=== PATIENT | female | born 1995 | race Caucasian/White ===

== ENCOUNTER 2020-03-28 21:19 | Emergency (ER) | payer OTHER ==
[~2020-03-28] VITALS: Ht 160 cm; Wt 117.9 kg
== END 2020-03-28 23:29 | disposition home or self-care (01) ==
LOC: ER 21:19
DX: Z77.098 Contact with and (suspected) exposure to other hazardous, chiefly nonmedicinal, chemicals (principal); Z91.040 Latex allergy status
CPT/HCPCS: 99282

== ENCOUNTER → 2021-06-21 | Outpatient (CLI) | payer OTHER ==
[2021-06-23 22:10] LABS: CHLAMYDIA TRACHOMATIS, NAA Negative (Negative)
== END | disposition home or self-care (01) ==
LOC: LAB SHORT 12:01
PROVIDERS: Obstetrics & Gynecology
DX: Z34.81 Encounter for supervision of other normal pregnancy, first trimester (principal)
CPT/HCPCS: 87491; 87591

== ENCOUNTER → 2021-07-10 | Outpatient (CLI) | payer SELFPAY | END | disposition home or self-care (01) | LOC: LAB SHORT 11:17 | DX: R82.79 Other abnormal findings on microbiological examination of urine (principal) | CPT/HCPCS: 87086 ==

== ENCOUNTER 2021-08-23 03:41 | Day surgery (SDC) | payer OTHER, BC | END 2021-08-23 22:44 | disposition home or self-care (01) | LOC: ATC 03:41 | DX: O21.0 Mild hyperemesis gravidarum (principal); Z3A.00 Weeks of gestation of pregnancy not specified ==

== ENCOUNTER 2021-09-09 11:05 | Emergency (ER) | payer OTHER, BC ==
[~2021-09-09] VITALS: Ht 157.5 cm; Wt 122.5 kg
[2021-09-09 11:44] LABS: Source, Urine Clean Catch
[2021-09-09 11:48] LABS: Appearance, Urine Hazy (Clear); Blood, Urine 5+ (Neg); Color, Urine Yellow (P-Yellow); Glucose Qualitative, Urine Neg (Neg); Ketones, Urine 4+ (Neg); Leukocyte Esterase, Urine 1+ (Neg); Nitrite, Urine Neg (Neg); Protein, Urine 2+ (Neg); Specific Gravity, Urine 1.025 (1.003-1.022); Urobilinogen, Urine 3+ (Normal)
[2021-09-09 11:51] LABS: BASOPHILS ABSOLUTE AUTO 0.03 K/mm3 (0.00-0.23); BASOPHILS PERCENT AUTO 0 % (0-2); EOSINOPHILS ABSOLUTE AUTO 0.04 K/mm3 (0.00-0.68); EOSINOPHILS PERCENT AUTO 0 % (0-6); Hematocrit 37.3 % (33.0-51.0); Hemoglobin 12.8 g/dL (11.5-16.0); IMMATURE GRAN ABSOLUTE AUTO 0.03 K/mm3 (0.00-0.10); IMMATURE GRAN PERCENT AUTO 0 % (0-1); LYMPHOCYTES ABSOLUTE AUTO 1.95 K/mm3 (0.84-5.20); LYMPHOCYTES PERCENT AUTO 19 % (21-46); MONOCYTES ABSOLUTE AUTO 0.63 K/mm3 (0.16-1.47); MONOCYTES PERCENT AUTO 6 % (4-13); Mean Corpuscular HGB 28.8 pg (26.0-34.0); Mean Corpuscular HGB Conc 34.3 g/dL (31.5-36.5); Mean Corpuscular Volume 84 fL (80-100); Mean Platelet Volume 10.8 fL (9.1-12.4); NEUTROPHILS ABSOLUTE AUTO 7.43 K/mm3 (1.96-9.15); NEUTROPHILS PERCENT AUTO 74 % (41-73); Platelet Count 286 K/mm3 (150-400); RDW Coefficient Variation 13.7 % (11.7-14.2); RDW Standard Deviation 41.6 fL (35.1-46.3); Red Blood Cell Count 4.45 M/mm3 (3.80-5.20); White Blood Cell Count 10.11 K/mm3 (4.00-11.30)
[2021-09-09 12:13] LABS: Bilirubin, Urine 1+ (Neg)
[2021-09-09 12:16] LABS: Bacteria Mod /hpf; Calcium Oxalate Crystals Few /hpf; Mucus Light (0-Heavy); Red Blood Cells, Urine 25-50 /hpf (0-2); Squamous Epithelial Cells Mod /hpf (Few)
[2021-09-09 12:26] LABS: Alanine Aminotransfer (ALT/SGP 240 U/L (12-78); Albumin/Globulin Ratio 0.8 (0.8-1.8); Alk Phos 111 U/L (50-136); Anion Gap 9 mmol/L (6-16); Aspartate Aminotrans (AST/SGOT 95 U/L (12-37); Bilirubin, Total 0.7 mg/dL (0.1-1.0); Blood Urea Nitrogen 3 mg/dL (8-24); Bun/Creatinine Ratio 5.2 (12.0-20.0); CO2, Blood 22 mmol/L (21-32); Calcium, Blood 9.6 mg/dL (8.5-10.1); Chloride, Blood 107 mmol/L (98-108); Creatinine, Blood 0.58 mg/dL (0.40-1.00); Glomerular Filtration Rate >60 (60-); Glucose, Blood 85 mg/dL (70-99); Potassium, Blood 4.1 mmol/L (3.5-5.5); Sodium, Blood 138 mmol/L (136-145)
[2021-09-09] MEDS ORDERED: Norco 5-325 Ta1 EACH PO (16:20)
== END 2021-09-09 16:05 | disposition home or self-care (01) ==
LOC: ER 11:05
PROVIDERS: Physician Assistant
DX: O99.891 Other specified diseases and conditions complicating pregnancy (principal); R10.11 Right upper quadrant pain; Z91.040 Latex allergy status; Z3A.16 16 weeks gestation of pregnancy
CPT/HCPCS: 36415; 76700; 80053; 81001; 83690; 85025; 87086; 96374; 99284-25; A9270; J2405; J7030

== ENCOUNTER 2021-09-11 08:24 | Emergency (ER) | payer OTHER, BC ==
[~2021-09-11] VITALS: Ht 157.5 cm; Wt 117.9 kg
[~2021-09-11 08:24] MED LIST: Norco 5-325 Ta1 EACH PO
[2021-09-11 09:30] LABS: BASOPHILS ABSOLUTE AUTO 0.05 K/mm3 (0.00-0.23); BASOPHILS PERCENT AUTO 0 % (0-2); EOSINOPHILS ABSOLUTE AUTO 0.03 K/mm3 (0.00-0.68); EOSINOPHILS PERCENT AUTO 0 % (0-6); Hematocrit 36.5 % (33.0-51.0); Hemoglobin 12.7 g/dL (11.5-16.0); IMMATURE GRAN ABSOLUTE AUTO 0.03 K/mm3 (0.00-0.10); IMMATURE GRAN PERCENT AUTO 0 % (0-1); LYMPHOCYTES ABSOLUTE AUTO 1.69 K/mm3 (0.84-5.20); LYMPHOCYTES PERCENT AUTO 14 % (21-46); MONOCYTES ABSOLUTE AUTO 0.63 K/mm3 (0.16-1.47); MONOCYTES PERCENT AUTO 5 % (4-13); Mean Corpuscular HGB Conc 34.8 g/dL (31.5-36.5); Mean Corpuscular Volume 83 fL (80-100); Mean Platelet Volume 10.7 fL (9.1-12.4); NEUTROPHILS ABSOLUTE AUTO 10.06 K/mm3 (1.96-9.15); NEUTROPHILS PERCENT AUTO 81 % (41-73); Platelet Count 294 K/mm3 (150-400); RDW Coefficient Variation 13.6 % (11.7-14.2); RDW Standard Deviation 41.1 fL (35.1-46.3); Red Blood Cell Count 4.38 M/mm3 (3.80-5.20); White Blood Cell Count 12.49 K/mm3 (4.00-11.30)
[2021-09-11] MEDS ORDERED: PROG100 PO (09:33)
[2021-09-11] MEDS ORDERED: ONDA4ODT MM (09:33)
[2021-09-11 09:48] LABS: Alanine Aminotransfer (ALT/SGP 210 U/L (12-78); Albumin, Blood 2.9 g/dL (3.4-5.0); Albumin/Globulin Ratio 0.8 (0.8-1.8); Alk Phos 102 U/L (50-136); Anion Gap 8 mmol/L (6-16); Aspartate Aminotrans (AST/SGOT 88 U/L (12-37); Bilirubin, Total 0.6 mg/dL (0.1-1.0); Blood Urea Nitrogen 3 mg/dL (8-24); Bun/Creatinine Ratio 5.6 (12.0-20.0); CO2, Blood 22 mmol/L (21-32); Calcium, Blood 9.2 mg/dL (8.5-10.1); Chloride, Blood 108 mmol/L (98-108); Creatinine, Blood 0.54 mg/dL (0.40-1.00); Globulin, Blood 3.5 g/dL (2.2-4.0); Glomerular Filtration Rate >60 (60-); Glucose, Blood 91 mg/dL (70-99); Sodium, Blood 138 mmol/L (136-145); Total Protein, Blood 6.4 g/dL (6.4-8.2)
[2021-09-11 10:01] LABS: Source, Urine Clean Catch
[2021-09-11 10:05] LABS: Appearance, Urine Clear (Clear); Bilirubin, Urine Neg (Neg); Blood, Urine 5+ (Neg); Color, Urine Amber (P-Yellow); Glucose Qualitative, Urine Neg (Neg); Ketones, Urine 4+ (Neg); Leukocyte Esterase, Urine 1+ (Neg); Nitrite, Urine Neg (Neg); Protein, Urine 2+ (Neg); Specific Gravity, Urine 1.025 (1.003-1.022); Urobilinogen, Urine 3+ (Normal)
[2021-09-11 11:06] LABS: Bacteria Few /hpf; Squamous Epithelial Cells Not Seen /hpf (Few)
== END 2021-09-11 11:53 | disposition home or self-care (01) ==
LOC: ER 08:24
PROVIDERS: Emergency Medicine
DX: O99.891 Other specified diseases and conditions complicating pregnancy (principal); R10.9 Unspecified abdominal pain; Z3A.17 17 weeks gestation of pregnancy; Z91.040 Latex allergy status
CPT/HCPCS: 36415; 76700; 76857; 80053; 81001; 83690; 85025; 87086; 96374; 96375; 99284-25; J1885; J2405; J7030

== ENCOUNTER 2022-04-08 23:53 | Emergency (ER) | payer OTHER, BC ==
[~2022-04-08] VITALS: Ht 162.6 cm; Wt 90.7 kg
[~2022-04-08 23:53] MED LIST changes: +ONDA4ODT MM; +PROG100 PO
[2022-04-09 00:38] LABS: Albumin, Blood 3.3 g/dL (3.4-5.0); Albumin/Globulin Ratio 0.8 (0.8-1.8); Bilirubin, Total 0.2 mg/dL (0.1-1.0); Bun/Creatinine Ratio 25.1 (12.0-20.0); Calcium, Blood 9.5 mg/dL (8.5-10.1); Creatinine, Blood 0.68 mg/dL (0.40-1.00); Globulin, Blood 3.9 g/dL (2.2-4.0); Potassium, Blood 4.3 mmol/L (3.5-5.5); Total Protein, Blood 7.2 g/dL (6.4-8.2)
[2022-04-09 00:47] LABS: BASOPHILS ABSOLUTE AUTO 0.07 K/mm3 (0.00-0.23); BASOPHILS PERCENT AUTO 0 % (0-2); EOSINOPHILS ABSOLUTE AUTO 0.27 K/mm3 (0.00-0.68); EOSINOPHILS PERCENT AUTO 2 % (0-6); Hematocrit 33.1 % (33.0-51.0); Hemoglobin 10.4 g/dL (11.5-16.0); IMMATURE GRAN ABSOLUTE AUTO 0.07 K/mm3 (0.00-0.10); IMMATURE GRAN PERCENT AUTO 0 % (0-1); LYMPHOCYTES ABSOLUTE AUTO 3.05 K/mm3 (0.84-5.20); LYMPHOCYTES PERCENT AUTO 19 % (21-46); MONOCYTES PERCENT AUTO 4 % (4-13); Mean Corpuscular HGB 25.4 pg (26.0-34.0); Mean Corpuscular HGB Conc 31.4 g/dL (31.5-36.5); Mean Corpuscular Volume 81 fL (80-100); Mean Platelet Volume 9.7 fL (9.1-12.4); NEUTROPHILS ABSOLUTE AUTO 11.62 K/mm3 (1.96-9.15); NEUTROPHILS PERCENT AUTO 74 % (41-73); Platelet Count 361 K/mm3 (150-400); RDW Coefficient Variation 14.1 % (11.7-14.2); RDW Standard Deviation 41.2 fL (35.1-46.3); Red Blood Cell Count 4.09 M/mm3 (3.80-5.20); White Blood Cell Count 15.78 K/mm3 (4.00-11.30)
== END 2022-04-09 02:15 | disposition home or self-care (01) ==
LOC: ER 23:53
PROVIDERS: Emergency Medicine
DX: R10.13 Epigastric pain (principal); Z91.040 Latex allergy status
CPT/HCPCS: 36415; 76705; 80053; 83690; 85025; A9270; J1885; J2405

== ENCOUNTER 2024-09-26 14:54 | Emergency (ER) | payer OTHER, BC ==
[~2024-09-26] VITALS: Ht 160 cm; Wt 90.7 kg
[2024-09-26 14:59] VITALS: BP 131/72
[2024-09-26] MEDS ORDERED: PRENATAL TABLE1 EAC2 PO (15:11)
== END 2024-09-26 15:50 | disposition home or self-care (01) ==
LOC: ER 14:54
DX: O9A.212 Injury, poisoning and certain other consequences of external causes complicating pregnancy, second trimester (principal); S63.501A Unspecified sprain of right wrist, initial encounter; S50.11XA Contusion of right forearm, initial encounter; Z3A.20 20 weeks gestation of pregnancy; Z91.040 Latex allergy status; Z79.899 Other long term (current) drug therapy; W01.0XXA Fall on same level from slipping, tripping and stumbling without subsequent striking against object, initial encounter
CPT/HCPCS: 73090; 99283-25

== ENCOUNTER → 2024-10-10 | Outpatient (CLI) | payer BC ==
[~2024-10-10] MED LIST changes: +PRENATAL TABLE1 EAC2 PO
[2024-10-10 13:36] LABS: BASOPHILS ABSOLUTE AUTO 0.06 K/mm3 (0.00-0.23); BASOPHILS PERCENT AUTO 1 % (0-2); EOSINOPHILS ABSOLUTE AUTO 0.08 K/mm3 (0.00-0.68); EOSINOPHILS PERCENT AUTO 1 % (0-6); Hematocrit 33.5 % (33.0-51.0); Hemoglobin 11.5 g/dL (11.5-16.0); IMMATURE GRAN ABSOLUTE AUTO 0.09 K/mm3 (0.00-0.10); IMMATURE GRAN PERCENT AUTO 1 % (0-1); LYMPHOCYTES ABSOLUTE AUTO 2.88 K/mm3 (0.84-5.20); LYMPHOCYTES PERCENT AUTO 22 % (21-46); MONOCYTES ABSOLUTE AUTO 0.76 K/mm3 (0.16-1.47); MONOCYTES PERCENT AUTO 6 % (4-13); Mean Corpuscular HGB 30.8 pg (26.0-34.0); Mean Corpuscular HGB Conc 34.3 g/dL (31.5-36.5); Mean Corpuscular Volume 90 fL (80-100); Mean Platelet Volume 10.2 fL (9.1-12.4); NEUTROPHILS ABSOLUTE AUTO 9.27 K/mm3 (1.96-9.15); NEUTROPHILS PERCENT AUTO 71 % (41-73); Platelet Count 267 K/mm3 (150-400); RDW Coefficient Variation 12.6 % (11.7-14.2); RDW Standard Deviation 41.1 fL (35.1-46.3); Red Blood Cell Count 3.73 M/mm3 (3.80-5.20); White Blood Cell Count 13.14 K/mm3 (4.00-11.30)
[2024-10-10 13:46] LABS: Albumin, Blood 2.8 g/dL (3.4-5.0); Albumin/Globulin Ratio 0.7 (0.8-1.8); Bilirubin, Total 0.2 mg/dL (0.1-1.0); Bun/Creatinine Ratio 20.8 (12.0-20.0); Calcium, Blood 8.4 mg/dL (8.5-10.1); Creatinine, Blood 0.53 mg/dL (0.40-1.00); Globulin, Blood 3.8 g/dL (2.2-4.0); Potassium, Blood 3.9 mmol/L (3.5-5.5); Total Protein, Blood 6.6 g/dL (6.4-8.2)
== END ==
LOC: LAB 13:31 → LAB SHORT 13:31
PROVIDERS: Emergency Medicine
DX: R11.2 Nausea with vomiting, unspecified (principal)
CPT/HCPCS: 80053; 83690; 85025

== ENCOUNTER 2024-12-13 18:03 | Observation (INO) | payer BC ==
[~2024-12-13] VITALS: Ht 160 cm; Wt 95.5 kg
[~2024-12-13 18:03] MED LIST changes: +AMPDEX10CR PO; +PROM25 PO
[2024-12-13] MEDS ORDERED: Terbutaline Sulfate 1MG / ML 1 ML Amp SC PRN (18:40)
[2024-12-13] MEDS ORDERED: NIFEdipine 60 MG TabCR PO ONE (18:40)
[2024-12-13] MEDS ORDERED: Terbutaline Sulfate 1MG / ML 1 ML Amp ONE (18:43)
[2024-12-13 18:59] LABS: Source, Urine Clean Catch
[2024-12-13 19:09] LABS: Appearance, Urine Cloudy (Clear); Bilirubin, Urine Neg (Neg); Blood, Urine 5+ (Neg); Color, Urine Yellow (P-Yellow); Glucose Qualitative, Urine Neg (Neg); Ketones, Urine 2+ (Neg); Leukocyte Esterase, Urine 1+ (Neg); Nitrite, Urine Neg (Neg); Protein, Urine 2+ (Neg); Specific Gravity, Urine 1.025 (1.003-1.022); Urobilinogen, Urine NORM (Normal)
[2024-12-13 19:11] VITALS: BP 141/68
[2024-12-13] MEDS ORDERED: Lactated Ringer's 1,000 ML IV ONE ×4 (19:19→20:25)
[2024-12-13] MEDS ORDERED: FentaNYL Citrate 50 MCG/ML 2 ML Injection ONE ×2 (19:19→20:23)
[2024-12-13] MEDS ORDERED: Ondansetron HCl 2 MG / ML 2ML Vial ONE (19:19)
[2024-12-13] MEDS ORDERED: FentaNYL Citrate 50 MCG/ML 2 ML Injection IV ONE ×3 (19:20→20:25)
[2024-12-13] MEDS ORDERED: Ondansetron HCl 2 MG / ML 2ML Vial IV ONE (19:20)
[2024-12-13 19:21] LABS: Bacteria Many /hpf; Red Blood Cells, Urine 50-100 /hpf (0-2); Squamous Epithelial Cells Rare /hpf (Few)
[2024-12-13 19:22] LABS: Amorphous Light (0-Heavy); Calcium Oxalate Crystals Many /hpf; Mucus Light (0-Heavy)
[2024-12-13 19:34] VITALS: BP 134/66
[2024-12-13 20:02] VITALS: BP 132/74
[2024-12-13] MEDS ORDERED: Tamsulosin HCl 0.4 MG Cap PO ONE (20:25)
[2024-12-13 20:29] VITALS: BP 137/73
[2024-12-13] MEDS ORDERED: FentaNYL Citrate 50 MCG/ML 2 ML Injection IV PRN (21:10)
[2024-12-13] MEDS ORDERED: Ondansetron HCl 2 MG / ML 2ML Vial IV PRN (21:15)
[2024-12-13 21:31] VITALS: BP 126/67
[2024-12-13] MEDS ORDERED: Lactated Ringer's 1,000 ML IV SCH (22:25)
[2024-12-13 23:11] VITALS: BP 124/61
[2024-12-13] MEDS ORDERED: NS 250 ML IV SCH (23:35)
[2024-12-13] MEDS ORDERED: fentaNYL citrate 50 MCG/ML 30MLSYR IV PRN (23:35)
[2024-12-13] MEDS ORDERED: fentaNYL citrate 20 MCG/ML 30MLSYR IV PRN (23:50)
[2024-12-13] MEDS ORDERED: NIFE30ER PO (23:52)
[2024-12-14 03:52] VITALS: BP 113/59
--- NOTE | 2024-12-14 07:31 | NUR ---
ASSUMED CARE. PT TRYING TO GET SOME SLEEP. STATES PAIN IS MUCH BETTER WITH ESTATE AND [employer] TAX PRINCIPAL. STILL FEELING SOME MILD ACHE IN THE LEFT FLANK BUT NOTHING LIKE IT WAS. MOLLY CALLED FOR UPDATE AND WILL BE GIVING REPORT TO DR HAINES.
[2024-12-14 07:53] VITALS: BP 125/73
[2024-12-14 12:27] VITALS: BP 121/67
[2024-12-14] MEDS ORDERED: HyDROXyzine HCl 25 MG Tab PO PRN (12:40)
[2024-12-14] MEDS ORDERED: NIFEdipine 30 MG TabCR PO SCH (13:00)
[2024-12-14] MEDS ORDERED: Tamsulosin HCl 0.4 MG Cap PO SCH (13:00)
[2024-12-14 17:55] VITALS: BP 107/55
--- NOTE | 2024-12-14 18:04 | NUR ---
RESTING WELL AT THIS TIME. ZOFRAN GIVEN FOR NAUSEA. PT STATES THIS IS NOTHING NEW AND HAS BEEN NAUSEOUS ENTIRE . DENIES FEELING ANY CONTRACTIONS THAT ARE DIFFERENT THAT SHE IS USE TO. PT STATES SHE FEELS LIKE POSSIBLE STONE IS MOVING DOWN LOWER. WILL CONTINUE TO STRAIN URINE. REPORT WILL BE GIVEN TO ONCOMING SHIFT.
[2024-12-14 19:58] VITALS: BP 110/63
[2024-12-14] MEDS ORDERED: OxyCODONE HCL 5 MG TAB PO PRN (20:10)
[2024-12-14] MEDS ORDERED: HYDROmorphone HCl 2 MG Tab PO PRN (20:10)
[2024-12-15 00:49] VITALS: BP 103/52
[2024-12-15 05:00] VITALS: BP 85/49
[2024-12-15 05:01] VITALS: BP 95/54
[2024-12-15 07:42] VITALS: BP 114/63
[2024-12-15 10:33] VITALS: BP 112/58
== END 2024-12-15 11:13 | disposition home or self-care (01) ==
LOC: BC 18:03 → OBS 18:03 → BC 23:32 → OBS 23:32 → BC 12-15 11:13
PROVIDERS: ADMIT Registered Nurse Community Health
DX: O99.891 Other specified diseases and conditions complicating pregnancy (principal); N13.2 Hydronephrosis with renal and ureteral calculous obstruction; Z3A.34 34 weeks gestation of pregnancy; Z91.040 Latex allergy status; Z98.891 History of uterine scar from previous surgery
CPT/HCPCS: 59025; 76770; 81001; 81003; 87086; 96374; 96376; A9270; G0378; J2405; J3010; J3105; J7120

== ENCOUNTER 2024-12-20 05:15 | Observation (INO) | payer BC ==
[~2024-12-20] VITALS: Ht 160 cm; Wt 97.9 kg
[~2024-12-20 05:15] MED LIST changes: +NIFE30ER PO
[2024-12-20 05:33] VITALS: BP 118/62
[2024-12-20] MEDS ORDERED: Morphine Sulfate 10 MG/ML 1MLSYR IM ONE (05:55)
[2024-12-20] MEDS ORDERED: Promethazine HCl 25 MG Tab PO ONE (05:55)
--- NOTE | 2024-12-20 07:29 | NUR ---
PT COMPLAINING OF PAIN IN LEFT FLANK 04/14. NO ADDITIONAL ORDERS FOR PAIN CONTROL IN [facility]. DR. HAINES CALLED, MESSAGE LEFT. RESPONCE PENDING.
[2024-12-20 07:33] VITALS: BP 103/57
[2024-12-20] MEDS ORDERED: FentaNYL Citrate 50 MCG/ML 2 ML Injection IV PRN (07:55)
[2024-12-20] MEDS ORDERED: Acetaminophen 500 MG Tab PO PRN (08:30)
[2024-12-20] MEDS ORDERED: OxyCODONE HCL 5 MG TAB PO PRN (08:30)
[2024-12-20] MEDS ORDERED: Ondansetron HCl 2 MG / ML 2ML Vial IV PRN (11:20)
[2024-12-20] MEDS ORDERED: Lactated Ringer's 1,000 ML IV SCH (11:20)
[2024-12-20 12:31] VITALS: BP 108/58
[2024-12-20 12:47] LABS: BASOPHILS ABSOLUTE AUTO 0.04 K/mm3 (0.00-0.23); BASOPHILS PERCENT AUTO 0 % (0-2); EOSINOPHILS ABSOLUTE AUTO 0.04 K/mm3 (0.00-0.68); EOSINOPHILS PERCENT AUTO 0 % (0-6); Hematocrit 27.6 % (33.0-51.0); Hemoglobin 9.4 g/dL (11.5-16.0); IMMATURE GRAN ABSOLUTE AUTO 0.07 K/mm3 (0.00-0.10); IMMATURE GRAN PERCENT AUTO 1 % (0-1); LYMPHOCYTES ABSOLUTE AUTO 2.07 K/mm3 (0.84-5.20); LYMPHOCYTES PERCENT AUTO 19 % (21-46); MONOCYTES ABSOLUTE AUTO 0.41 K/mm3 (0.16-1.47); MONOCYTES PERCENT AUTO 4 % (4-13); Mean Corpuscular HGB Conc 34.1 g/dL (31.5-36.5); Mean Corpuscular Volume 88 fL (80-100); Mean Platelet Volume 10.3 fL (9.1-12.4); NEUTROPHILS ABSOLUTE AUTO 8.29 K/mm3 (1.96-9.15); NEUTROPHILS PERCENT AUTO 76 % (41-73); Platelet Count 181 K/mm3 (150-400); RDW Coefficient Variation 12.5 % (11.7-14.2); RDW Standard Deviation 39.8 fL (35.1-46.3); Red Blood Cell Count 3.13 M/mm3 (3.80-5.20); White Blood Cell Count 10.92 K/mm3 (4.00-11.30)
[2024-12-20 13:02] LABS: Albumin, Blood 2.2 g/dL (3.4-5.0); Albumin/Globulin Ratio 0.7 (0.8-1.8); Bilirubin, Total 0.2 mg/dL (0.1-1.0); Bun/Creatinine Ratio 10.5 (12.0-20.0); Calcium, Blood 8.3 mg/dL (8.5-10.1); Creatinine, Blood 0.76 mg/dL (0.40-1.00); Globulin, Blood 3.1 g/dL (2.2-4.0); Potassium, Blood 4.1 mmol/L (3.5-5.5); Total Protein, Blood 5.3 g/dL (6.4-8.2)
[2024-12-20] MEDS ORDERED: TAMS.4ER PO (13:54)
[2024-12-20] MEDS ORDERED: OXYC10ER PO (13:54)
[2024-12-20] MEDS ORDERED: Tamsulosin HCl 0.4 MG Cap PO SCH ×2 (15:15→21:00)
[2024-12-20 16:23] VITALS: BP 123/65
[2024-12-20 19:52] VITALS: BP 130/68
[2024-12-20] MEDS ORDERED: fentaNYL citrate 20 MCG/ML 30MLSYR IV PRN (20:50)
[2024-12-20 23:35] VITALS: BP 122/67
[2024-12-20] MEDS ORDERED: HyDROXyzine HCl 25 MG Tab PO SCH (23:45)
[2024-12-21] VITALS (8 sets, daily range): BP systolic 106–124; BP diastolic 58–70
--- NOTE | 2024-12-21 06:17 | NUR ---
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 SHE HAS ADEQUATE PAIN RELIEF AND IS ABLE TO SLEEP FOR A COUPLE HOURS AT A TIME. PT IS VOIDING 300-400 ML CLEAR YELLOW URINE PER VOID , WHICH IS STRAINED WITH EACH VOID. NO SEDIMENT IS OBSERVED.
[2024-12-21] MEDS ORDERED: Enoxaparin 40 MG/0.4 ML SYR SC SCH (10:00)
--- NOTE | 2024-12-21 12:56 | NUR ---
CLARIFIED WITH DR. HAINES. PT OKAY TO TAKE PO OXYCODONE AND TYLENOL X 1 DUE TO PAIN WHILE ON POOL CLEANER. ORDERS TO BE DC'D AFTER THIS DOSE. IF INCREAED PAIN CONTINUES DR. HAINES TO BE NOTIFIED.
[2024-12-21] MEDS ORDERED: Zolpidem Tartrate 10 MG Tab PO PRN (18:25)
[2024-12-21] MEDS ORDERED: CefTRIAXone Sodium 1,000 MG in NS 100 ML IV SCH (19:00)
[2024-12-21] MEDS ORDERED: Sod Ferric Gluc Complx/Sucrose 125 MG in NS 100 ML IV SCH (19:00)
[2024-12-21] MEDS ORDERED: NS 1,000 ML IV SCH (19:20)
[2024-12-21] MEDS ORDERED: NS 1,000 ML IV ONE (19:24)
[2024-12-21] MEDS ORDERED: FentaNYL Citrate 50 MCG/ML 2 ML Injection IV PRN (20:10)
[2024-12-21] MEDS ORDERED: Docusate Sodium 100 MG Cap PO SCH (21:00)
[2024-12-21] MEDS ORDERED: Zolpidem Tartrate 10 MG Tab PO SCH (21:00)
[2024-12-21 21:36] LABS: BASOPHILS ABSOLUTE AUTO 0.04 K/mm3 (0.00-0.23); BASOPHILS PERCENT AUTO 0 % (0-2); EOSINOPHILS ABSOLUTE AUTO 0.06 K/mm3 (0.00-0.68); EOSINOPHILS PERCENT AUTO 1 % (0-6); Hemoglobin 10.1 g/dL (11.5-16.0); IMMATURE GRAN ABSOLUTE AUTO 0.07 K/mm3 (0.00-0.10); IMMATURE GRAN PERCENT AUTO 1 % (0-1); LYMPHOCYTES ABSOLUTE AUTO 2.76 K/mm3 (0.84-5.20); LYMPHOCYTES PERCENT AUTO 27 % (21-46); MONOCYTES ABSOLUTE AUTO 0.72 K/mm3 (0.16-1.47); MONOCYTES PERCENT AUTO 7 % (4-13); Mean Corpuscular HGB 30.1 pg (26.0-34.0); Mean Corpuscular HGB Conc 33.7 g/dL (31.5-36.5); Mean Corpuscular Volume 90 fL (80-100); NEUTROPHILS ABSOLUTE AUTO 6.53 K/mm3 (1.96-9.15); NEUTROPHILS PERCENT AUTO 64 % (41-73); Platelet Count 205 K/mm3 (150-400); RDW Coefficient Variation 12.7 % (11.7-14.2); RDW Standard Deviation 41.1 fL (35.1-46.3); Red Blood Cell Count 3.35 M/mm3 (3.80-5.20); White Blood Cell Count 10.18 K/mm3 (4.00-11.30)
[2024-12-21 21:58] LABS: Albumin, Blood 2.3 g/dL (3.4-5.0); Albumin/Globulin Ratio 0.7 (0.8-1.8); Bilirubin, Total 0.2 mg/dL (0.1-1.0); Bun/Creatinine Ratio 12.2 (12.0-20.0); Calcium, Blood 8.1 mg/dL (8.5-10.1); Creatinine, Blood 0.9 mg/dL (0.40-1.00); Globulin, Blood 3.5 g/dL (2.2-4.0); Total Protein, Blood 5.8 g/dL (6.4-8.2)
[2024-12-22 00:31] VITALS: BP 126/61
[2024-12-22 05:11] VITALS: BP 111/56
--- NOTE | 2024-12-22 07:25 | NUR ---
pt arousable when rn in room, states she would like to sleep a bit more prior to monitoring and getting up. states she got sleep last night and was feeling a lot better today and used minimal pain medicine over night. will call when she wakes up for monitoring and am meds.
[2024-12-22 08:31] VITALS: BP 115/64
--- NOTE | 2024-12-22 09:26 | NUR ---
new orders via phone to [employer] now and progress pt to [facility] to see how she does. dr walker will be in around lunch time to round and plans to send ultrasound results to [facility] for consult
[2024-12-22] MEDS ORDERED: Acetaminophen 500 MG Tab PO PRN (09:40)
[2024-12-22] MEDS ORDERED: OxyCODONE HCL 5 MG TAB PO PRN (09:40)
--- NOTE | 2024-12-22 12:59 | NUR ---
DR HAINES IN TO SEE PT. ORDERS TO DISCHARGE PT TO HOME RECEIVED. PLAN FOR PT TO DISCHARGE HOME AND TO KEEP SCHEDULED DR MOLINA, PT TO RETURN TO [facility] WITH ANY PREGNANY/LABOR CONCERNS, PT TO GO TO [place] WITH ANY KIDNEY RELATED ISSUES. PT UNDERSTANDS THIS AND AGREES WITH PLAN OF CARE. QUESTIONS ANSWERED.
--- NOTE | 2024-12-22 13:45 | NUR ---
PT DISCHARGED TO HOME WITH LABOR PRECAUTIONS
== END 2024-12-22 13:38 | disposition home or self-care (01) ==
LOC: OBS 05:15 → BC 05:17 → OBS 11:40 → BC 11:49
PROVIDERS: ADMIT Family Medicine
DX: O26.833 Pregnancy related renal disease, third trimester (principal); N20.0 Calculus of kidney; Z91.040 Latex allergy status; Z3A.35 35 weeks gestation of pregnancy
CPT/HCPCS: 36415; 59025; 76770; 80053; 81003; 85025; 96361; 96365; 96366; 96367; 96372; 96375; 96376; 99214; A9270; G0378; J0696; J1650; J2270; J2405; J2916; J3010; J7030; J7120

== ENCOUNTER 2025-01-07 08:59 | Day surgery (SDC) | payer BC ==
[~2025-01-07 08:59] MED LIST changes: +OXYC10ER PO; +TAMS.4ER PO
[2025-01-07] MEDS ORDERED: NS 1,000 ML IV SCH (13:55)
[2025-01-07 14:01] VITALS: BP 124/67
== END 2025-01-07 16:28 | disposition home or self-care (01) ==
LOC: ATC 08:59
DX: O21.1 Hyperemesis gravidarum with metabolic disturbance (principal); Z3A.38 38 weeks gestation of pregnancy
CPT/HCPCS: 96360; 96361; J7030

== ENCOUNTER 2025-01-10 07:17 | Day surgery (SDC) | payer BC ==
[2025-01-10] MEDS ORDERED: NS 1,000 ML IV SCH (07:25)
[2025-01-10 16:19] VITALS: BP 122/77
== END 2025-01-10 18:19 | disposition home or self-care (01) ==
LOC: ATC 07:17
DX: O21.1 Hyperemesis gravidarum with metabolic disturbance (principal); Z3A.38 38 weeks gestation of pregnancy
CPT/HCPCS: 96360; 96361; J7030

== ENCOUNTER 2025-01-17 13:13 | Inpatient (IN) | payer BC ==
[2025-01-17] VITALS (14 sets, daily range): BP systolic 118–146; BP diastolic 63–83
[~2025-01-17] VITALS: Ht 160 cm; Wt 95.0 kg
[2025-01-17] MEDS ORDERED: CeFAZolin Sodium 2,000 MG in NS 100 ML IV SCH (14:20)
[2025-01-17] MEDS ORDERED: Metoclopramide HCl 5MG / ML 2ML Vial IV ONE (14:20)
[2025-01-17] MEDS ORDERED: Lactated Ringer's 1,000 ML IV ONE (14:23)
[2025-01-17 14:34] LABS: BASOPHILS ABSOLUTE AUTO 0.06 K/mm3 (0.00-0.23); BASOPHILS PERCENT AUTO 1 % (0-2); EOSINOPHILS ABSOLUTE AUTO 0.06 K/mm3 (0.00-0.68); EOSINOPHILS PERCENT AUTO 1 % (0-6); Hematocrit 35.1 % (33.0-51.0); Hemoglobin 11.9 g/dL (11.5-16.0); IMMATURE GRAN ABSOLUTE AUTO 0.13 K/mm3 (0.00-0.10); IMMATURE GRAN PERCENT AUTO 1 % (0-1); LYMPHOCYTES ABSOLUTE AUTO 2.68 K/mm3 (0.84-5.20); LYMPHOCYTES PERCENT AUTO 23 % (21-46); MONOCYTES PERCENT AUTO 5 % (4-13); Mean Corpuscular HGB 29.8 pg (26.0-34.0); Mean Corpuscular HGB Conc 33.9 g/dL (31.5-36.5); Mean Corpuscular Volume 88 fL (80-100); Mean Platelet Volume 10.2 fL (9.1-12.4); NEUTROPHILS ABSOLUTE AUTO 7.91 K/mm3 (1.96-9.15); NEUTROPHILS PERCENT AUTO 69 % (41-73); Platelet Count 226 K/mm3 (150-400); RDW Coefficient Variation 13.6 % (11.7-14.2); RDW Standard Deviation 43.9 fL (35.1-46.3); White Blood Cell Count 11.44 K/mm3 (4.00-11.30)
[2025-01-17] MEDS ORDERED: Ondansetron HCl 2 MG / ML 2ML Vial ONE (15:09)
[2025-01-17] MEDS ORDERED: Dexamethasone Sod Phos 10 MG/ML 1ML VIAL ONE (15:09)
[2025-01-17] MEDS ORDERED: Phenylephrine HCl 100 MCG/ML-NS 10MLSYR (1MG/10ML) ONE (15:09)
[2025-01-17] MEDS ORDERED: Ketorolac Tromethamine 30mg Vial ONE (15:09)
[2025-01-17] MEDS ORDERED: Oxytocin 10 Unit / ML Vial ONE (15:09)
[2025-01-17 15:13] LABS: Albumin/Globulin Ratio 0.8 (0.8-1.8); Bilirubin, Total 0.4 mg/dL (0.1-1.0); Bun/Creatinine Ratio 21.1 (12.0-20.0); Calcium, Blood 8.9 mg/dL (8.5-10.1); Creatinine, Blood 0.43 mg/dL (0.40-1.00); Globulin, Blood 3.8 g/dL (2.2-4.0); Potassium, Blood 4.1 mmol/L (3.5-5.5); Total Protein, Blood 6.8 g/dL (6.4-8.2)
[2025-01-17] MEDS ORDERED: FentaNYL Citrate 50 MCG/ML 2 ML Injection ONE ×4 (15:53→17:05)
[2025-01-17] MEDS ORDERED: Midazolam HCl 1MG / ML 2ML Vial ONE ×2 (16:10→16:20)
[2025-01-17] MEDS ORDERED: HYDROmorphone HCl/Pf 1MG SYR ONE (16:23)
[2025-01-17] MEDS ORDERED: Bupivacaine 0.5% HCl 5 MG/ML 30MLVIAL ONE (16:28)
[2025-01-17] MEDS ORDERED: HYDROmorphone HCl/Pf 1MG SYR IV ONE (16:30)
[2025-01-17] MEDS ORDERED: Bupivacaine 0.5% HCl 5 MG/ML 30MLVIAL INJ ONE (16:31)
[2025-01-17] MEDS ORDERED: Tranexamic Acid 100 ML IV SCH (17:10)
[2025-01-17] MEDS ORDERED: FentaNYL Citrate 50 MCG/ML 2 ML Injection IV SCH (17:15)
[2025-01-17] MEDS ORDERED: Misoprostol 200 MCG Tab PR PRN (17:55)
[2025-01-17] MEDS ORDERED: Methylergonovine Maleate 0.2 MG Tab PO PRN (17:55)
[2025-01-17] MEDS ORDERED: Ondansetron HCl 2 MG / ML 2ML Vial IV PRN (17:55)
[2025-01-17] MEDS ORDERED: Methylergonovine Maleate 0.2MG / ML 1ML Amp IM PRN (17:55)
[2025-01-17] MEDS ORDERED: Misoprostol 200 MCG Tab BC ONE (17:55)
[2025-01-17] MEDS ORDERED: Oxytocin 10 Unit / ML Vial IM ONE (18:00)
[2025-01-17] MEDS ORDERED: Ketorolac Tromethamine 30mg Vial IV SCH (18:00)
[2025-01-17] MEDS ORDERED: Carboprost Tromethamine 250 MCG/ML 1ML Amp IM PRN (18:00)
[2025-01-17] MEDS ORDERED: Promethazine HCl 12.5 MG Supp PR PRN (18:00)
[2025-01-17] MEDS ORDERED: Promethazine HCl 25 MG Tab PO PRN (18:00)
[2025-01-17] MEDS ORDERED: Acetaminophen 500 MG Tab PO PRN (18:00)
[2025-01-17] MEDS ORDERED: OxyCODONE HCL 5 MG TAB PO PRN (18:00)
[2025-01-17] MEDS ORDERED: OXYTOCIN/RINGER'S LACTATE 500 ML IV ONE (18:34)
[2025-01-17] MEDS ORDERED: Oxytocin 10 Unit / ML Vial IV ONE (18:35)
--- NOTE | 2025-01-17 18:41 | NUR ---
DR HAINES UPDATED OF PAIN AND INCREASED BLEEDING
[2025-01-17] MEDS ORDERED: Ibuprofen 400 MG Tab PO PRN (19:25)
[2025-01-17] MEDS ORDERED: Ketorolac Tromethamine 30mg Vial IV PRN (19:30)
[2025-01-17] MEDS ORDERED: Tranexamic Acid 1000 MG/10 ML 10ML Vial (SDV) XX ONE (21:37)
[2025-01-18] MEDS ORDERED: Ibuprofen 400 MG Tab PO SCH
[2025-01-18 00:34] VITALS: BP 109/56
[2025-01-18] MEDS ORDERED: OXYTOCIN/RINGER'S LACTATE 500 ML IV PRN (02:10)
[2025-01-18] MEDS ORDERED: Lactated Ringer's 1,000 ML IV PRN (02:10)
[2025-01-18 04:16] VITALS: BP 106/62
[2025-01-18 06:53] LABS: BASOPHILS ABSOLUTE AUTO 0.04 K/mm3 (0.00-0.23); BASOPHILS PERCENT AUTO 0 % (0-2); EOSINOPHILS ABSOLUTE AUTO 0.04 K/mm3 (0.00-0.68); EOSINOPHILS PERCENT AUTO 0 % (0-6); Hemoglobin 10.7 g/dL (11.5-16.0); IMMATURE GRAN ABSOLUTE AUTO 0.11 K/mm3 (0.00-0.10); IMMATURE GRAN PERCENT AUTO 1 % (0-1); LYMPHOCYTES ABSOLUTE AUTO 2.56 K/mm3 (0.84-5.20); LYMPHOCYTES PERCENT AUTO 20 % (21-46); MONOCYTES ABSOLUTE AUTO 0.92 K/mm3 (0.16-1.47); MONOCYTES PERCENT AUTO 7 % (4-13); Mean Corpuscular HGB 30.6 pg (26.0-34.0); Mean Corpuscular HGB Conc 34.5 g/dL (31.5-36.5); Mean Corpuscular Volume 89 fL (80-100); Mean Platelet Volume 10.2 fL (9.1-12.4); NEUTROPHILS ABSOLUTE AUTO 9.01 K/mm3 (1.96-9.15); NEUTROPHILS PERCENT AUTO 71 % (41-73); Platelet Count 183 K/mm3 (150-400); RDW Coefficient Variation 13.6 % (11.7-14.2); RDW Standard Deviation 44.1 fL (35.1-46.3); White Blood Cell Count 12.68 K/mm3 (4.00-11.30)
[2025-01-18] MEDS ORDERED: Docusate Sodium 100 MG Cap PO SCH (09:00)
[2025-01-18 09:04] VITALS: BP 117/67
[2025-01-18] MEDS ORDERED: Simethicone 80 MG Chew PO PRN (10:50)
[2025-01-18 12:53] VITALS: BP 109/65
[2025-01-18 15:57] VITALS: BP 122/63
[2025-01-18 20:17] VITALS: BP 125/67
[2025-01-19 00:18] VITALS: BP 118/61
[2025-01-19 04:07] VITALS: BP 118/71
[2025-01-19 07:16] VITALS: BP 119/69
[2025-01-19 12:30] VITALS: BP 123/84
== END 2025-01-19 12:45 | disposition home or self-care (01) | DRG 788 ==
LOC: BC 13:13
PROVIDERS: ADMIT Family Medicine
PROC: 10D00Z1 Extraction of Products of Conception, Low, Open Approach (ICD-10-PCS; principal; 2025-01-17 15:00)
DX: O34.211 Maternal care for low transverse scar from previous cesarean delivery (principal); Z3A.39 39 weeks gestation of pregnancy; Z37.0 Single live birth; Z91.040 Latex allergy status; O99.844 Bariatric surgery status complicating childbirth; F90.2 Attention-deficit hyperactivity disorder, combined type; O99.344 Other mental disorders complicating childbirth
CPT/HCPCS: 36415; 80053; 85025; 86850; 86900; 86901; 86923; A9270; J0690; J1100; J1171; J1885; J2210; J2250; J2371; J2405; J2590; J2765; J3010; J7120